=== PATIENT | female | born 1995 | race Caucasian/White ===

== ENCOUNTER 2017-11-15 20:04 | Emergency (ER) | payer OTHER ==
[~2017-11-15] VITALS: Ht 157.5 cm; Wt 70.3 kg
[~2017-11-15 20:04] MED LIST: AMOXICILLIN875 MG PO; INTESTINEX680 MG PO
== END 2017-11-15 22:46 | disposition home or self-care (01) ==
LOC: ER 20:04
DX: J06.9 Acute upper respiratory infection, unspecified (principal)

== ENCOUNTER 2018-09-05 06:47 | Inpatient (IN) | payer OTHER ==
[~2018-09-05] VITALS: Ht 157.5 cm; Wt 153.0 kg
[2018-09-05] MEDS ORDERED: PRENATAL 19 TA1 EACH PO (07:49)
== END 2018-09-07 15:42 | disposition home or self-care (01) | DRG 807 ==
LOC: OB/GYN 06:47 → LDR 06:47 → OB/GYN 16:32
PROVIDERS: ADMIT Obstetrics & Gynecology
PROC: 10E0XZZ Delivery of Products of Conception, External Approach (ICD-10-PCS; principal; 2018-09-05)
PROC: 3E033VJ Introduction of Other Hormone into Peripheral Vein, Percutaneous Approach (ICD-10-PCS; 2018-09-05)
PROC: 4A1HXCZ Monitoring of Products of Conception, Cardiac Rate, External Approach (ICD-10-PCS; 2018-09-05)
DX: O80 Encounter for full-term uncomplicated delivery (principal); Z37.0 Single live birth; Z3A.39 39 weeks gestation of pregnancy; Z22.330 Carrier of Group B streptococcus